=== PATIENT | male | born 1960 | race Caucasian/White ===

== ENCOUNTER → 2024-05-04 10:34 | Outpatient (REF) | payer BC, SELFPAY ==
[2024-05-04 13:33] LABS: Blood Urea Nitrogen 19 mg/dl (9-20); Calcium 9.7 mg/dl (8.4-10.2); Carbon Dioxide 27 mmol/L (22-30); Chloride 104 mmol/L (98-107); Glucose 100 mg/dl (70-99); Potassium 4.5 mmol/L (3.5-5.1); Sodium 139 mmol/L (135-145); eGFR > 60.00
== END ==
LOC: REG 10:34
PROVIDERS: ATTENDING PHYSICIAN Internal Medicine Interventional Cardiology; FAMILY PHYSICIAN Anesthesiology
DX: I10 Essential (primary) hypertension (principal)
CPT/HCPCS: 36415; 80048

== ENCOUNTER → 2024-10-01 07:26 | Outpatient (REF) | payer BC, SELFPAY ==
[2024-10-01 09:27] LABS: ALT (SGPT) 32 U/L (0-50); AST (SGOT) 27 U/L (17-59); Albumin 4.7 g/dl (3.5-5.0); Alkaline Phosphatase 57 U/L (38-126); Direct Bilirubin 0.1 mg/dl (0.0-0.4); HDL Cholesterol 49 mg/dl; LDL Cholesterol, Calculated 123 mg/dl; Total Bilirubin 0.7 mg/dl (0.2-1.3); Total Cholesterol 192 mg/dl (50-199); Total Protein 7.6 g/dl (6.3-8.2); Triglyceride 100 mg/dl (10-149); Very Low Density Lipoprotein 20 mg/dl (0-30)
[2024-10-03 16:59] LABS: Apolipoprotein B 99 mg/dL (66-133)
== END ==
LOC: REG 07:26
PROVIDERS: FAMILY PHYSICIAN Anesthesiology
DX: E78.2 Mixed hyperlipidemia (principal)
CPT/HCPCS: 36415; 80061; 80076; 82172

== ENCOUNTER → 2024-10-05 07:17 | Outpatient (REF) | payer SELFPAY | LOC: RAD 07:17 | PROVIDERS: ATTENDING PHYSICIAN Internal Medicine Interventional Cardiology; FAMILY PHYSICIAN Anesthesiology | DX: E78.2 Mixed hyperlipidemia (principal) | CPT/HCPCS: 75571 ==

== ENCOUNTER → 2024-12-12 09:38 | Outpatient (REF) | payer BC, SELFPAY ==
[2024-12-12 12:24] LABS: HDL Cholesterol 56 mg/dl; LDL Cholesterol, Calculated 119 mg/dl; Total Cholesterol 188 mg/dl (50-199); Triglyceride 68 mg/dl (10-149); Very Low Density Lipoprotein 13 mg/dl (0-30)
== END ==
LOC: REG 09:38
PROVIDERS: ATTENDING PHYSICIAN Internal Medicine Interventional Cardiology; FAMILY PHYSICIAN Anesthesiology
DX: E78.2 Mixed hyperlipidemia (principal)
CPT/HCPCS: 36415; 80061

== ENCOUNTER → 2025-02-16 10:40 | Outpatient (REF) | payer BC, SELFPAY ==
[2025-02-16 12:09] LABS: ALT (SGPT) 23 U/L (0-50); AST (SGOT) 21 U/L (17-59); Albumin 4.4 g/dl (3.5-5.0); Alkaline Phosphatase 68 U/L (38-126); Direct Bilirubin 0.2 mg/dl (0.0-0.4); HDL Cholesterol 40 mg/dl; LDL Cholesterol, Calculated 77 mg/dl; Total Bilirubin 0.7 mg/dl (0.2-1.3); Total Cholesterol 130 mg/dl (50-199); Total Protein 7.3 g/dl (6.3-8.2); Triglyceride 68 mg/dl (10-149); Very Low Density Lipoprotein 13 mg/dl (0-30)
[2025-02-19 00:52] LABS: Lipoprotein a (Lp a) 94 mg/dL (<=29)
== END ==
LOC: REG 10:40
PROVIDERS: ATTENDING PHYSICIAN Internal Medicine Interventional Cardiology; FAMILY PHYSICIAN Anesthesiology
DX: E78.2 Mixed hyperlipidemia (principal)
CPT/HCPCS: 36415; 80061; 80076; 83695

== ENCOUNTER → 2025-11-09 07:50 | Outpatient (REF) | payer BC, SELFPAY ==
[2025-11-09 09:22] LABS: ALT (SGPT) 25 U/L (0-50); AST (SGOT) 21 U/L (17-59); Albumin 4.4 g/dl (3.5-5.0); Alkaline Phosphatase 70 U/L (38-126); HDL Cholesterol 39 mg/dl; LDL Cholesterol, Calculated 78 mg/dl; Total Protein 7.2 g/dl (6.3-8.2); Very Low Density Lipoprotein 19 mg/dl (0-30)
== END ==
LOC: REG 07:50
PROVIDERS: ATTENDING PHYSICIAN Internal Medicine Interventional Cardiology; FAMILY PHYSICIAN Anesthesiology
DX: E78.2 Mixed hyperlipidemia (principal)
CPT/HCPCS: 36415; 80061; 80076